=== PATIENT | male | born 1935 | race Caucasian/White ===

== ENCOUNTER 2016-11-28 07:15 | Day surgery (SDC) | payer OTHER, BC ==
[2016-11-25 14:01] VITALS: BMI 24.3
[2016-11-28] MEDS ORDERED: PROPOFOL 20 ML ONE (07:26)
[2016-11-28] MEDS ORDERED: LIDOCAINE HCL/PF 2% SDV 5ML VIAL ONE (07:27)
[2016-11-28] MEDS ORDERED: METOPROLOL TARTRATE 5 MG/5 ML VIAL ONE (08:05)
[2016-11-28 09:12] VITALS: TEMP 98.8
[2016-11-28 12:09] VITALS: BP 144/70; PULSE 78
== END 2016-11-28 09:35 | disposition home or self-care (01) ==
LOC: FASU-ENDO 07:15
PROVIDERS: ATTEND Internal Medicine Gastroenterology
PROC: 0DJD8ZZ Inspection of Lower Intestinal Tract, Via Natural or Artificial Opening Endoscopic (ICD-10-PCS; principal; 2016-11-28 08:43)
DX: Z12.11 Encounter for screening for malignant neoplasm of colon (principal)